=== PATIENT | female | born 1965 | race Caucasian/White ===

== ENCOUNTER 2018-05-08 14:03 | Observation (INO) ==
[2018-05-08] MEDS ORDERED: 0.9 % SODIUM CHLORIDE 1,000 ML IV ONE (14:21)
--- NOTE | 2018-05-08 14:24 | Emergency Department Note ---
Weakness HPI - General Chief complaint: Weakness Stated complaint: unable to care for self Time Seen by Provider: 05/08/18 14:14 Source: patient Mode of arrival: ambulatory Limitations: no limitations - History of Present Illness HPI Narrative: Patient has Down syndrome was brought in by family via EMT his family believes she is been having some increased weakness. Home health is there to visit intermittently. But they have arranged for her to be transferred to [facility] this next week. States she does not have a PCP but has scheduled to be s een by [facility] Stephanie Sanders in 2 weeks. Part of this time she has been avoiding doctors according to the family. Patient denies any major signs or symptoms she has some pain in the right knee some vague diffuse abdominal pain that comes on intermittently. He said no nausea vomiting but is not eating well she states is been no hematemesis no melenaPulse is 73 the blood pressure is 104/90 pulse ox is 90% - Related Data Home Medications Medication Instructions Recorded Confirmed No Known Home Meds 05/08/18 05/08/18 Allergies Allergy/AdvReac Type Severity Reaction Status Date / Time No Known Drug Allergies Allergy Verified 04/25/18 15:41 Review of Systems All systems ED: reviewed and negative except as stated. Constitutional: Denies: fever, chills Gastrointestinal: Reports: abdominal pain, nausea Genitourinary: Denies: dysuria, urgency, frequency Musculoskeletal: Reports: joint pain (Right knee pain present for the past several years) Past Medical History - Past Medical History [facility] Narrative: All Active Problems Head contusion (Acute) Hypokalemia (Acute) Medical history: Reports: other (Down syndrome) Surgical history ED: Reports: non-contributory Family history: Reports: non-contributory - Social History smoking status: Former smoker Alcohol use: Reports: None Drug use: Reports: none Physical Exam Limitations: no limitations General appearance: alert Head: atraumatic, normocephalic Eye: Present: normal appearance, PERRL ENT: normal exam, normal oropharynx Neck: Present: normal inspection, full ROM, trachea midline Chest: Present: normal inspection, symmetric chest wall rise. Absent: tenderness Respiratory: Present: normal lung sounds bilaterally. Absent: respiratory di stress, rales/crackles, wheezes Cardiovascular: Present: regular rate, normal rhythm. Absent: bradycardia, tachycardia Abdominal: Present: soft, normal bowel sounds. Absent: distention, tenderness, guarding, rebound, rigidity Course Vital Signs Pulse Rate 73 05/08/18 14:14 Blood Pressure 104/90 05/08/18 14:14 Pulse Oximetry (%) 100 05/08/18 14:14 Pulse Rate 64 05/08/18 14:50 Blood Pressure 97/55 05/08/18 16:01 Pulse Oximetry (%) 100 05/08/18 14:50 Weakness - MDM Narrative Medical decision making narrative: UA shows 3 WBCs and 0 RBCs sodium is 149 but the potassium was low at 2.7 CO2 is 25 liver function test are normal the glucose is 83 lactic acid 1.1 UBC is 6400 to hemoglobin 11.9 hematocrit of 35.5. Discussion with shoe caser states that the patient's been slowly deteriorating in which she is not been eating has been having several falls was seen approximately a week and a half ago and had hypokalemia at that time. K rider has been started they have her accepted to [facility] tomorrow and Dr. Kelly has accepted the patient - Lab Data Result diagrams: 05/08/18 14:35 05/08/18 14:35 Lab Results 05/08/18 05/08/18 05/08/18 Range/Units 14:35 14:35 14:35 WBC 6.4 (4.5-11.0) K/mcL RBC 3.54 L (4.00-5.20) M/mcL Hgb 11.9 L (12.0-15.0) g/dL Hct 35.5 L (36.0-48.0) % MCV 100.1 H (80.0-100.0) fL MCH 33.5 (26.0-34.0) pg MCHC 33.5 (31.0-36.0) g/dL RDW 14.4 (11.5-14.5) % Plt Count 298 (140-440) K/mcL MPV 7.8 (7.4-10.4) fL Gran % 82.7 H (38.0-78.0) % Lymph % (Auto) 12.2 L (15.5-49.0) % [place] % (Auto) 4.3 (1.0-12.0) % Eos % (Auto) 0.6 (0.0-7.0) % Baso % (Auto) 0.2 (0.0-2.0) % Gran # 5.3 (1.8-8.0) K/mcL Lymph # (Auto) 0.8 L (1.5-4.8) K/mcL [place] # (Auto) 0.3 (0.1-0.9) K/mcL Eos # (Auto) 0 (0.0-0.7) K/mcL Baso # (Auto) 0 (0.0-0.3) K/mcL VBG Lactic Acid 1.1 (0.5-2.0) mmol/L Sodium 149 H (133-145) mmol/L Potassium 2.7 L* (3.3-5.1) mmol/L Chloride 102 (96-108) mmol/L Carbon Dioxide 25 (22-30) mmol/L Anion Gap 22.0 H (8-16) BUN 12 (6-20) mg/dl Creatinine 0.9 (0.6-1.1) mg/dl GFR Calculation 74 Glucose 83 (70-105) mg/dL Calcium 9.3 (8.6-10.4) mg/dl Total Bilirubin 0.8 (0.0-1.0) mg/dL AST 34 (0-37) U/l ALT 19 (0-40) U/l Alkaline Phosphatase 89 (39-117) U/L Total Creatine Kinase (24-170) IU/L Total Protein 6.9 (5.9-8.4) gm/dL Albumin 3.5 (3.2-5.2) gm/dL Globulin 3.4 (2.2-3.7) gm/dL Albumin/Globulin Ratio 1.0 (1.0-2.3) Urine Color Urine Appearance Urine pH (5.0-9.0) Ur Specific [place] (1.000-1.035) Urine Protein (NEG) mg/dL Urine Glucose (UA) (NEG) mg/dL Urine Ketones (NEG) mg/dL Urine Occult Blood (<0.03) mg/dL Urine Nitrate (NEG) Urine Bilirubin (NEG) mg/dL Urine Urobilinogen (NEG) mg/dL Ur Leukocyte Esterase (NEG) /uL Urine RBC (0-1) /hpf Urine WBC (0-4) /hpf Ur Squamous Epith Cells (0-4) /hpf Urine Bacteria (0) /hpf Ur Culture Indicated? 05/08/18 05/08/18 Range/Units 14:35 15:42 WBC (4.5-11.0) K/mcL RBC (4.00-5.20) M/mcL Hgb (12.0-15.0) g/dL Hct (36.0-48.0) % MCV (80.0-100.0) fL MCH (26.0-34.0) pg MCHC (31.0-36.0) g/dL RDW (11.5-14.5) % Plt Count (140-440) K/mcL MPV (7.4-10.4) fL Gran % (38.0-78.0) % Lymph % (Auto) (15.5-49.0) % [place] % (Auto) (1.0-12.0) % Eos % (Auto) (0.0-7.0) % Baso % (Auto) (0.0-2.0) % Gran # (1.8-8.0) K/mcL Lymph # (Auto) (1.5-4.8) K/mcL [place] # (Auto) (0.1-0.9) K/mcL Eos # (Auto) (0.0-0.7) K/mcL Baso # (Auto) (0.0-0.3) K/mcL VBG Lactic Acid (0.5-2.0) mmol/L Sodium (133-145) mmol/L Potassium (3.3-5.1) mmol/L Chloride (96-108) mmol/L Carbon Dioxide (22-30) mmol/L Anion Gap (8-16) BUN (6-20) mg/dl Creatinine (0.6-1.1) mg/dl GFR Calculation Glucose (70-105) mg/dL Calcium (8.6-10.4) mg/dl Total Bilirubin (0.0-1.0) mg/dL AST (0-37) U/l ALT (0-40) U/l Alkaline Phosphatase (39-117) U/L Total Creatine Kinase 169 (24-170) IU/L Total Protein (5.9-8.4) gm/dL Albumin (3.2-5.2) gm/dL Globulin (2.2-3.7) gm/dL Albumin/Globulin Ratio (1.0-2.3) Urine Color Yellow Urine Appearance Hazy Urine pH 5.0 (5.0-9.0) Ur Specific [place] 1.018 (1.000-1.035) Urine Protein 30 A (NEG) mg/dL Urine Glucose (UA) Negative (NEG) mg/dL Urine Ketones 80 A (NEG) mg/dL Urine Occult Blood 0.2 A (<0.03) mg/dL Urine Nitrate Pos A (NEG) Urine Bilirubin Neg (NEG) mg/dL Urine Urobilinogen 4.0 A (NEG) mg/dL Ur Leukocyte Esterase Neg (NEG) /uL Urine RBC < 1 (0-1) /hpf Urine WBC 3 (0-4) /hpf Ur Squamous Epith Cells 5 H (0-4) /hpf Urine Bacteria Mod A (0) /hpf Ur Culture Indicated? No Disposition Pt seen by CASINO DUTY MANAGER/PA only: No Clinical Impression: Hypokalemia Disposition: Xfer As Outpt/Obs ([facility]) Condition: Fair Time of Disposition: 16:45
[2018-05-08 15:07] LABS: Basophils # (Auto) 0 K/mcL (0.0-0.3); Basophils % (Auto) 0.2 % (0.0-2.0); Eosinophils # (Auto) 0 K/mcL (0.0-0.7); Eosinophils % (Auto) 0.6 % (0.0-7.0); Granulocytes % (Auto) 82.7 % (38.0-78.0); Lymphocytes # (Auto) 0.8 K/mcL (1.5-4.8); Lymphocytes % (Auto) 12.2 % (15.5-49.0); Mean Cell Volume 100.1 fL (80.0-100.0); Mean Corpuscular HGB Conc 33.5 g/dL (31.0-36.0); Monocytes # (Auto) 0.3 K/mcL (0.1-0.9); Monocytes % (Auto) 4.3 % (1.0-12.0); Platelet Count 298 K/mcL (140-440); RBC 3.54 M/mcL (4.00-5.20); Red Cell Distribution Width 14.4 % (11.5-14.5)
--- NOTE | 2018-05-08 15:35 | XRay Report ---
CLINICAL INFORMATION: vague abd pain COMPARISON: Abdominopelvic CT from 02/18/2009 and plain films 03/18/2009 FINDINGS: The stool gas pattern is normal. There is no free air, soft tissue mass or organomegaly. Large calcifications overlying the right midabdomen, are known to be within the subcutaneous fat of the supragluteal region on CT. Severe degenerative change in both hips noted with chronic bilateral subluxation. There is also severe degenerative disc disease at L3-4 and moderate degeneration throughout the remainder of the lumbar spine IMPRESSION: 1. No acute intra-abdominal disease 2. 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 Findings are more severe on the the right with progression in degeneration since 2008 comparison film Interpreted and Authenticated by: Slim Kwan 05/08/18
[2018-05-08 15:38] LABS: ALT/SGPT 19 U/l (0-40); Albumin 3.5 gm/dL (3.2-5.2); Alkaline Phosphatase 89 U/L (39-117); Blood Urea Nitrogen 12 mg/dl (6-20)
--- NOTE | 2018-05-08 15:39 | XRay Report ---
CLINICAL INFORMATION: injury COMPARISON: None. FINDINGS: No fracture identified. A 20 mm benign-appearing exostosis ejects from the posterior medial cortex of the distal femoral metaphysis. Patellofemoral and tibiofemoral joints are normal in width and alignment without arthritic change. Soft tissues are normal. IMPRESSION: No fracture. 20 mm exostosis projecting from the posterior medial distal femoral metaphysis Interpreted and Authenticated by: Slim Kwan 05/08/18
[2018-05-08] MEDS ORDERED: POTASSIUM CHLORIDE 40 MEQ in DEXTROSE 5% IN WATER 500 ML IV ONE (15:40)
[2018-05-08 16:12] LABS: Appearance,Urine HAZY; Bacteria,Urine MOD /hpf (0); Bilirubin,Urine NEG (NEG); Color,Urine YELLOW; Glucose,Urine (UA) NEGATIVE (NEG); Leukocyte Esterase,Urine NEG /uL (NEG); Protein,Urine 30 mg/dL (NEG); Specific Gravity,Urine 1.018 (1.000-1.035); Urine Blood 0.2 mg/dL (<0.03); Urine RBC < 1 /hpf (0-1); Urine Squamous Epithelial Cell 5 /hpf (0-4); Urine WBC 3 /hpf (0-4)
[2018-05-08] MEDS: 0.9 % SODIUM CHLORIDE 1,000 ML IV SCH ×2 (16:45→20:14)
--- NOTE | 2018-05-08 16:48 | Internal Med History&Physical ---
Medical - H&P: HPI Patient information: Note initiated : 05/08/18 at 4:47 pm Service Date, if different from initiated Date: [] Patient: Mara Rodriguez a 52 y/o F admitted on for Unable To Care For Self. Chief Complaint: [] Chief complaint: weakness, Low K History of present illness: Ms. Rodriguez is a 52 year old F with history of Down syndrome who has been able to manage independently with the help of caregivers. Over the last few days she has gotten progressively weaker. She was brought into [place] ER due to weakness fatigue and inability to function. Initial workup was significant for potassium 2.7. BMI 17.6. Hospitalist service was consulted due to high risk deconditioning/injury in the setting of failure to thrive and profound weakness if patient was discharged to existing home set up. At the time of evaluation patient is alert oriented. Most of the history is obtained from review of medical records and from ER physician. No family members are present. She is able to answer some of the questions. Patient denies headache, chest pain, shortness of breath, fever, diarrhea Review of systems Limited review of system was performed and is negative except as discussed above Medical - H&P: PMH Medical history: Down syndrome Pertinent family history: Not relevant Social history: No history of smoking alcoholism Medical - H&P: Meds Home Medications Medication Instructions Recorded Confirmed Type No Known Home Meds 05/08/18 05/08/18 History Allergies Allergy/AdvReac Type Severity Reaction Status Date / Time No Known Drug Allergies Allergy Verified 05/08/18 17:05 Medical - H&P: Exam - Constitutional Vitals: Pulse BP Pulse Ox 64 97/55 100 05/08/18 14:50 05/08/18 16:01 05/08/18 14:50 General appearance: no acute distress, thin Exam: Nondistressed Opens eyes to verbal commands Appears comfortable Oral cavity dry no ear nose discharge No anxiety neck no lymphadenopathy Diminished breath sounds bases abdomen soft Lower extremity no cyanosis clubbing Skin no suspicious lesion Medical - H&P: Reslt - Labs CBC & Chem 7: 05/09/18 03:58 05/09/18 03:58 Labs: Short CBC 05/08/18 Range/Units 14:35 WBC 6.4 (4.5-11.0) K/mcL Hgb 11.9 L (12.0-15.0) g/dL Hct 35.5 L (36.0-48.0) % Plt Count 298 (140-440) K/mcL BMP 05/08/18 14:35 Sodium 149 H Potassium 2.7 L* Chloride 102 Carbon Dioxide 25 BUN 12 Creatinine 0.9 Glucose 83 Calcium 9.3 Cardiac Enzymes 05/08/18 Range/Units 14:35 Total Creatine Kinase 169 (24-170) IU/L Liver Function 05/08/18 Range/Units 14:35 Total Bilirubin 0.8 (0.0-1.0) mg/dL AST 34 (0-37) U/l ALT 19 (0-40) U/l Alkaline Phosphatase 89 (39-117) U/L Albumin 3.5 (3.2-5.2) gm/dL Urine 05/08/18 Range/Units 15:42 Urine Color Yellow Urine Appearance Hazy Urine pH 5.0 (5.0-9.0) Ur Specific [place] 1.018 (1.000-1.035) Urine Protein 30 A (NEG) mg/dL Urine Glucose (UA) Negative (NEG) mg/dL Medical - H&P: A/P (1) Hypokalemia Current visit: Yes Status: Acute * Weakness and fatigue-initial evaluation PT/OT. Check TSH, no significant anemia. BMI 19 suggestive of poor nutritional intake. * Hypokalemia-2.7. Replace IV/PO. Recheck BMP in a.m.. * FTT- Nutrition support/high protein calorie supplements * Prophylaxis heparin PLAn * Obs tele admit * K replacement * Recheck BMP * PT OT * Nutrition consult * logistics analytics manager to arrange SNF transfer
[2018-05-08] MEDS ORDERED: POTASSIUM CHLORIDE 40 MEQ in DEXTROSE 5% IN WATER 500 ML IV PRN (17:28)
[2018-05-08] MEDS ORDERED: 0.9 % SODIUM CHLORIDE 1,000 ML IV SCH (17:28)
[2018-05-08] MEDS ORDERED: ACETAMINOPHEN 325 MG TABLET PO PRN (17:28)
[2018-05-08] MEDS ORDERED: ONDANSETRON 4 MG/2 ML VIAL IV PRN (17:28)
[2018-05-08] MEDS: POTASSIUM CHLORIDE 20 MEQ PACKET PO PRN (17:49)
[2018-05-08] MEDS: CYANOCOBALAMIN (VITAMIN B-12) 500 MCG TABLET PO SCH (20:25)
[2018-05-08] MEDS: DOCUSATE SODIUM 100 MG CAPSULE PO SCH (20:26)
[2018-05-08] MEDS: 0.9 % SODIUM CHLORIDE 10 ML SYRINGE IV SCH (20:27)
[2018-05-08] MEDS: HEPARIN 5,000 UNIT/ML VIAL SQ SCH (20:27)
[2018-05-08] MEDS ORDERED: SENNOSIDES/DOCUSATE SODIUM 1 TAB TABLET PO SCH (21:00)
[2018-05-09 05:07] LABS: Mean Corpuscular HGB Conc 33.4 g/dL (31.0-36.0); Platelet Count 237 K/mcL (140-440); RBC 2.84 M/mcL (4.00-5.20); Red Cell Distribution Width 14.4 % (11.5-14.5)
[2018-05-09] MEDS: 0.9 % SODIUM CHLORIDE 10 ML SYRINGE IV SCH (05:11)
[2018-05-09 05:24] LABS: ALT/SGPT 13 U/l (0-40); Albumin 2.5 gm/dL (3.2-5.2); Alkaline Phosphatase 68 U/L (39-117); Bilirubin,Direct < 0.2 mg/dL (0.0-0.3); Blood Urea Nitrogen 10 mg/dl (6-20); Gamma Glutamyl Transpeptidase 7 U/L (5-36); Uric Acid 7.7 mg/dL (2.5-8.0)
[2018-05-09 06:34] LABS: Basophils % (Manual) 1 % (0-2); Eosinophils % (Manual) 1 % (0-7); Lymphocytes % 23 % (15-49); Macrocytosis 1+ (NONE SEEN); Monocytes % (Manual) 4 % (1-12); Platelet Estimate NORMAL (NORMAL); RBC Morphology ABNORM (NORMAL); Segmented Neutrophils % 71 % (38-78)
[2018-05-09] MEDS ORDERED: MULTIVIT,THER IRON,CA,FA & MIN 1 TABLET PO SCH (09:00)
[2018-05-09] MEDS ORDERED: FOLIC ACID 1 MG TABLET PO SCH (09:00)
[2018-05-09] MEDS: HEPARIN 5,000 UNIT/ML VIAL SQ SCH (09:36)
[2018-05-09] MEDS: CYANOCOBALAMIN (VITAMIN B-12) 500 MCG TABLET PO SCH (10:23)
[2018-05-09] MEDS: DOCUSATE SODIUM 100 MG CAPSULE PO SCH (10:24)
[2018-05-09] MEDS: POTASSIUM CHLORIDE 20 MEQ PACKET PO PRN (10:24)
--- NOTE | 2018-05-09 10:24 | Discharge Summary ---
Medical - DS: Prov Patient information: Note initiated : 05/09/18 at 10:21 am Service Date, if different from initiated Date: [] Patient: Mara Rodriguez 52 y/o F admitted on 05/08/18 for Unable To Care For Self. Chief Complaint: [] Date of admission: 05/08/18 17:26 Discharge date: 05/09/18 Consults: 05/08/18 16:39 Consult to Physician [CONS] Stat Comment: Consulting Provider: Jamaal Espinoza Reason For Exam: Physician to Consult Medical - DS: Meds - Discharge Medications Active and Home Medications: Home Medications No Known Home Meds 05/08/18 [History Confirmed 05/08/18 Last Taken Unknown] Medical - DS: Hosp Hospital course: Discharge diagnosis * Weakness and fatigue- Continue aggressive PT OT at SNF. Continue nutritional support. * Hypokalemia-resolved with IV and oral replacement * FTT-continue nutrition support per dietitian/high protein calorie supplements Brief hospital course Ms. Rodriguez is a 52 year old F with history of Down syndrome who has been able to manage independently with the help of caregivers. Over the last few days she has gotten progressively weaker. [facility] due to weakness fatigue and inability to function. Initial workup was significant for potassium 2.7. BMI 17.6. Hospitalist service was consulted due to high risk deconditioning/injury in the setting of failure to thrive and profound weakness if patient was discharged to existing home set up. At the time of evaluation patient is alert oriented. Most of the history is obtained from review of medical records and from ER physician. No family members are present. 05/09-patient did well with aggressive potassium replacement and normalization of potassium. Patient is now alert awake responding to commands. She appears close to baseline. She is being transferred to [facility] intermediate home for continued supervised care/rehab/nutrition support Discharge diagnosis: . - Time Spent with Patient Total time spent providing and/or coordinating discharge services: Medical - DS: Exam - Constitutional Vitals: Vital Signs Temp Pulse Resp BP BP Pulse Ox 05/09/18 08:00 98 05/09/18 07:38 98.7 F 14 92/56 98 05/09/18 03:57 98.3 F 18 92/59 97 05/09/18 01:01 90/54 05/08/18 23:59 98.9 F 64 18 88/52 100 05/08/18 20:05 98.4 F 20 97/63 100 05/08/18 17:28 97.7 F 24 H 105/63 100 05/08/18 17:26 100 05/08/18 17:16 71 16 111/55 100 05/08/18 17:09 64 18 97/55 100 05/08/18 17:01 46 L 14 103/58 97 05/08/18 16:59 46 L 7 L 103/62 98 05/08/18 16:31 100/64 05/08/18 16:01 97/55 05/08/18 15:31 108/55 05/08/18 15:26 112/58 05/08/18 14:50 64 105/54 100 05/08/18 14:31 115/59 05/08/18 14:14 73 104/90 100 Intake and Output 05/08/18 05/09/18 05/09/18 21:59 05:59 13:59 Intake Total 2692 600 325 Output Total 350 Balance 2692 250 325 Intake: IV 1612 325 Sodium Chloride 0.9% 1,000 ml @ 1417 500 mls/hr IV .Q2H RADHA Rx#: [id number] Potassium Chloride 40 Meq In 195 Dextrose 5% in Water 500 ml @ 130 mls/hr IV ONCE ONE Rx#: [id number] Oral 1080 600 Output: Void Amount 350 Other: Meal Nourishment/Supplement Nourishment/Supplement Percent of Meal Consumed 100% 100% Feeding Ability Assist with Tray Set Up Independent Urine Appearance Fem Cath Clear Urine Color Dark [place] Fem Cath Dark Yellow Urine Odor Foul Fem Cath Normal Weight 99 lb 3.2 oz Medical - DS: Data Labs on day of discharge: Labs from last 24 hours 05/09/18 05/09/18 05/08/18 03:58 03:58 15:42 WBC 6.3 RBC 2.84 L Hgb 9.6 L Hct 28.7 L MCV 101.0 H MCH 33.7 MCHC 33.4 RDW 14.4 Plt Count 237 MPV 8.1 Gran % Lymph % (Auto) [place] % (Auto) Eos % (Auto) Baso % (Auto) Gran # Lymph # (Auto) [place] # (Auto) Eos # (Auto) Baso # (Auto) Total Counted 100 Seg Neutrophils % 71 Band Neutrophils % Not Reportable Lymphocytes % 23 Monocytes % (Manual) 4 Eosinophils % (Manual) 1 Basophils % (Manual) 1 Platelet Estimate Normal RBC Morphology Abnorm A Macrocytosis 1+ A VBG Lactic Acid Sodium 140 Potassium 3.2 L Chloride 108 Carbon Dioxide 25 Anion Gap 7.0 L BUN 10 Creatinine 0.9 GFR Calculation 74 Glucose 115 H Uric Acid 7.7 Calcium 8.1 L Phosphorus 1.7 L Magnesium 1.5 L Total Bilirubin 0.5 Direct Bilirubin < 0.2 GGT 7 AST 22 ALT 13 Alkaline Phosphatase 68 Lactate Dehydrogenase 158 Total Creatine Kinase Total Protein 5.0 L Albumin 2.5 L Globulin 2.5 Albumin/Globulin Ratio 1.0 Triglycerides 70 Urine Color Yellow Urine Appearance Hazy Urine pH 5.0 Ur Specific [place] 1.018 Urine Protein 30 A Urine Glucose (UA) Negative Urine Ketones 80 A Urine Occult Blood 0.2 A Urine Nitrate Pos A Urine Bilirubin Neg Urine Urobilinogen 4.0 A Ur Leukocyte Esterase Neg Urine RBC < 1 Urine WBC 3 Ur Squamous Epith Cells 5 H Urine Bacteria Mod A Ur Culture Indicated? No 05/08/18 05/08/18 05/08/18 14:35 14:35 14:35 WBC RBC Hgb Hct MCV MCH MCHC RDW Plt Count MPV Gran % Lymph % (Auto) [place] % (Auto) Eos % (Auto) Baso % (Auto) Gran # Lymph # (Auto) [place] # (Auto) Eos # (Auto) Baso # (Auto) Total Counted Seg Neutrophils % Band Neutrophils % Lymphocytes % Monocytes % (Manual) Eosinophils % (Manual) Basophils % (Manual) Platelet Estimate RBC Morphology Macrocytosis VBG Lactic Acid 1.1 Sodium 149 H Potassium 2.7 L* Chloride 102 Carbon Dioxide 25 Anion Gap 22.0 H BUN 12 Creatinine 0.9 GFR Calculation 74 Glucose 83 Uric Acid Calcium 9.3 Phosphorus Magnesium Total Bilirubin 0.8 Direct Bilirubin GGT AST 34 ALT 19 Alkaline Phosphatase 89 Lactate Dehydrogenase Total Creatine Kinase 169 Total Protein 6.9 Albumin 3.5 Globulin 3.4 Albumin/Globulin Ratio 1.0 Triglycerides Urine Color Urine Appearance Urine pH Ur Specific [place] Urine Protein Urine Glucose (UA) Urine Ketones Urine Occult Blood Urine Nitrate Urine Bilirubin Urine Urobilinogen Ur Leukocyte Esterase Urine RBC Urine WBC Ur Squamous Epith Cells Urine Bacteria Ur Culture Indicated? 05/08/18 14:35 WBC 6.4 RBC 3.54 L Hgb 11.9 L Hct 35.5 L MCV 100.1 H MCH 33.5 MCHC 33.5 RDW 14.4 Plt Count 298 MPV 7.8 Gran % 82.7 H Lymph % (Auto) 12.2 L [place] % (Auto) 4.3 Eos % (Auto) 0.6 Baso % (Auto) 0.2 Gran # 5.3 Lymph # (Auto) 0.8 L [place] # (Auto) 0.3 Eos # (Auto) 0 Baso # (Auto) 0 Total Counted Seg Neutrophils % Band Neutrophils % Lymphocytes % Monocytes % (Manual) Eosinophils % (Manual) Basophils % (Manual) Platelet Estimate RBC Morphology Macrocytosis VBG Lactic Acid Sodium Potassium Chloride Carbon Dioxide Anion Gap BUN Creatinine GFR Calculation Glucose Uric Acid Calcium Phosphorus Magnesium Total Bilirubin Direct Bilirubin GGT AST ALT Alkaline Phosphatase Lactate Dehydrogenase Total Creatine Kinase Total Protein Albumin Globulin Albumin/Globulin Ratio Triglycerides Urine Color Urine Appearance Urine pH Ur Specific [place] Urine Protein Urine Glucose (UA) Urine Ketones Urine Occult Blood Urine Nitrate Urine Bilirubin Urine Urobilinogen Ur Leukocyte Esterase Urine RBC Urine WBC Ur Squamous Epith Cells Urine Bacteria Ur Culture Indicated? Preliminary micro results at discharge 05/08/18 15:32 Urine Culture - Preliminary Urine - Catheterized Gram negative bacillus Medical - DS: A/P - Patient/Caregiver Discharge Instructions Activity: as per physical therapy, increase activity as tolerated Diet: Regular Diet (High protein calorie supplements) Additional Instructions: Continue aggressive PT OT High protein calorie supplements - Problem Maintenance (1) Hypokalemia Status: Acute - Follow up Plan Disposition: Xfer SNF Prognosis: Fair Rehab Potential: Fair I certify that the patient requires SNF services: No Overall status at discharge: patient is progressing back to baseline Medical - DS: Qual - VTE Deep Vein Thrombosis/Pulmonary Embolism Present on Admission: No
== END 2018-05-09 13:41 ==
LOC: ED 14:03 → ICU 14:03
PROVIDERS: ADMIT Internal Medicine; ATTEND Internal Medicine